=== PATIENT | male | born 1995 | race Caucasian/White ===

== ENCOUNTER 2017-10-31 08:41 | Emergency (ER) | payer BC ==
[~2017-10-31] VITALS: Ht 177.8 cm; Wt 67.0 kg
[2017-10-31 08:43] VITALS: BP 139/75; PULSE 83; RESP 16; TEMP 97.6; O2SAT 100
[2017-10-31] MEDS ORDERED: ERYTOIN10 LEFT EYE (09:39)
--- NOTE | 2017-10-31 09:39 | PD ---
HPI Chief Complaint: Eye Problems/Injury Time Seen by Provider: 09:01 Travel History International Travel<30 days: No Contact w/Intl Traveler<30days: No Traveled to known affect area: No History of Present Illness HPI This is a 22-year-old male with left eye redness and irritation 3 days. He denies injury or trauma to the eye. Does not wear contact lenses. No photophobia. Denies any visual changes. Reports crusting lashes. Symptom severity is mild. No aggravating or alleviating factors. PFSH Past Medical History Medical History: Denies Significant Hx Tetanus Vaccination: > 5 Years Influenza Vaccination: No Past Surgical History Surgical History: No Previous Surgery Social History Alcohol Use: Yes (occas. beer, wine, mix drinks) Tobacco Use: Yes (1/2 ppd) Substance Use: No Allergies-Medications (Allergen,Severity, Reaction): Coded Allergies: No Known Allergies (Unverified , 10/31/17) Reported Meds & Prescriptions Reported Meds & Active Scripts Active No Active Prescriptions or Reported Medications Review of Systems Except as stated in HPI: all other systems reviewed are Neg General / Constitutional: No: Fever Eyes: Positive: Redness HENT: No: Headaches Cardiovascular: No: Chest Pain or Discomfort Respiratory: No: Shortness of Breath Gastrointestinal: No: Abdominal Pain Genitourinary: No: Dysuria Physical Exam Narrative GENERAL: Alert and well-appearing 22-year-old male SKIN: Warm and dry. HEAD: Normocephalic. EYES: Left eye injected. Pupils equal, round, reactive to light. EOMs intact. Visual bailey intact. Cornea is clear. No fluorescein dye uptake. Visual acuity L:20/20, R: 20/20, B:20/20 NECK: Supple CARDIOVASCULAR: Regular rate and rhythm RESPIRATORY: Breath sounds equal bilaterally. No accessory muscle use. GASTROINTESTINAL: Abdomen soft, non-tender, nondistended. MUSCULOSKELETAL: No cyanosis, or edema. Data Data Last Documented VS Vital Signs Date Time Temp Pulse Resp B/P (MAP) Pulse Ox O2 Delivery O2 Flow Rate FiO2 10/31/17 08:49 16 10/31/17 08:43 97.6 83 139/75 (96) 100 MDM Medical Decision Making Medical Screen Exam Complete: Yes Emergency Medical Condition: Yes Differential Diagnosis Conjunctivitis, corneal abrasion, iritis Narrative Course 22-year-old male with left eye conjunctivitis. Visual acuities intact. Patient is nontoxic appearing. He will be prescribed erythromycin ophthalmic ointment. Refer to ophthalmology for follow-up Diagnosis Primary Impression: Conjunctivitis Qualified Codes: H10.9 - Unspecified conjunctivitis Referrals: [employer]ician Departure Forms: Tests/Procedures, Work Release Enter return to work date: Nov 02, 2017 Additional Instructions: Antibiotics as directed. Follow-up with ophthalmology if he develop new or worsening symptoms. Scripts Erythromycin Opth Oint (Erythromycin Opth Oint) 5 Mg/Gm Oint 1 APPLIC LEFT EYE QID for Infection, #1 TUBE 0 Refills Prov: Brooke Akbar 10/31/17 Disposition: 01 DISCHARGE HOME Condition: Stable Brooke Akbar Oct 31, 2017 09:39
== END 2017-10-31 09:56 | disposition home or self-care (01) ==
LOC: PHEFT 08:41
DX: H10.9 Unspecified conjunctivitis (principal); F17.200 Nicotine dependence, unspecified, uncomplicated
CPT/HCPCS: 99283